=== PATIENT | female | born 1980 | race Caucasian/White ===

== ENCOUNTER 2021-11-08 15:56 | Emergency (ER) | payer OTHER ==
[2021-11-08 16:05] VITALS: BP 140/88; BMI 29.7
[2021-11-08 17:43] LABS: BASO % 0.6 % (0-2.0); HEMATOCRIT 32.5 % (32.4-45.2); HEMOGLOBIN 10.6 GM/dL (10.7-15.3); LYMPH % 9.6 % (8-40); MCH 26.8 pg (25.7-33.7); MCHC 32.6 g/dl (32.0-36.0); MEAN CELL VOLUME 82.1 fl (80-96); MEAN PLT VOLUME 7.8 fl (7.5-11.1); MONO % 6.5 % (3.8-10.2); NEUT % 83.3 % (42.8-82.8); PLATELET COUNT 299 10^3/uL (134-434); RBC 3.96 M/mm3 (3.60-5.2); RDW 14.2 % (11.6-15.6); WHITE BLOOD COUNT 13.9 K/mm3 (4.0-10.0)
[2021-11-08] MEDS ORDERED: ACETAMINOPHEN 500 MG TABLET (FP) PO ONE (17:56)
[2021-11-08 18:09] LABS: CALCIUM 9.1 mg/dL (8.5-10.1)
[2021-11-08 18:10] LABS: ALBUMIN 3.6 g/dl (3.4-5.0); BLOOD UREA NITROGEN 5.8 mg/dL (7-18)
[2021-11-08 18:13] LABS: CREATININE 0.8 mg/dL (0.55-1.3)
[2021-11-08 18:15] LABS: BILIRUBIN,TOTAL 0.3 mg/dL (0.2-1); TOT PROT 8.7 g/dl (6.4-8.2)
[2021-11-08] MEDS ORDERED: ACETAMINOPHEN 500 MG TABLET (FP) ONE (18:30)
[2021-11-08] MEDS ORDERED: AZITHROMYCIN 500 MG TABLET PO ONE (20:27)
[2021-11-08] MEDS ORDERED: KETOROLAC TROMETHAMINE 30 MG/1 ML VIAL IVPUSH ONE (20:40)
[2021-11-08] MEDS ORDERED: METOCLOPRAMIDE HCL INJECTION 10 MG/2 ML VIAL IVPUSH ONE (20:40)
[2021-11-08] MEDS ORDERED: DOXYCYCLINE HYCLATE 100 MG CAPSULE PO ONE ×2 (20:40→21:09)
[2021-11-08] MEDS ORDERED: SODIUM CHLORIDE 0.9% 500 ML INFUS.BAG IV ONE (20:44)
[2021-11-08] MEDS ORDERED: METOCLOPRAMIDE HCL INJECTION 10 MG/2 ML VIAL ONE (20:47)
[2021-11-08] MEDS ORDERED: KETOROLAC TROMETHAMINE 30 MG/1 ML VIAL ONE (20:47)
[2021-11-08 22:05] VITALS: PULSE 85; TEMP 98.9
[2021-11-10 08:06] LABS: SARS-CoV-2 NAA Not Detected (Not Detected)
== END 2021-11-08 22:36 | disposition home or self-care (01) ==
LOC: JER 15:56
PROC: 3E033GC Introduction of Other Therapeutic Substance into Peripheral Vein, Percutaneous Approach (ICD-10-PCS; principal; 2021-11-08)
DX: J18.9 Pneumonia, unspecified organism (principal)
CPT/HCPCS: 36415; 71046-TC-FY; 71260-TC; 80053; 84703; 85025; 85379; 96374; 96375; 99285-25; C9803; Q9967; U0003; U0005